=== PATIENT | female | born 1975 ===

== ENCOUNTER 2016-12-19 15:33 | Emergency (ER) | payer SELFPAY ==
--- NOTE | 2016-12-23 17:50 | ER ---
ADMIT: 12/19/2016 RM/LOC: ER [facility] MR#: [id number] [address] [id number] KELLIE KAPOOR [address] [address] Emergency Room Report SEX: F AGE: 41 : 1975 DATE: 12/19/2016 ADDENDUM: This patient comes into the ER because she has had a rash on her hand for the last week. It started out with small little blisters that were painless and she called them water blisters. She states she was popping and picking at them and now it has become increasingly red and swollen in her hand. She does have what is consistent with a fungal infection, tinea palmaris on her hand that is turning into an early cellulitis. I wrote a prescription for Keflex and Bactrim and also for clotrimazole cream. She is to follow up with her primary in the next week if not feeling better. Please see my T-sheet. SHERRY Aguirre / Aditya Gore MD / domenic JOB #: [id number] CC: Aditya Gore MD, Attending Physician Lalo Romero MD, Family Physician
== END 2016-12-19 16:40 | disposition home or self-care (01) ==
LOC: ER 15:33
DX: L03.113 Cellulitis of right upper limb (principal); B35.8 Other dermatophytoses; I10 Essential (primary) hypertension; J45.909 Unspecified asthma, uncomplicated; F32.9 Major depressive disorder, single episode, unspecified; Z79.899 Other long term (current) drug therapy